=== PATIENT | male | born 1945 | race Caucasian/White ===

== ENCOUNTER 2021-06-25 18:48 | Emergency (ER) | payer MEDICARE, BC ==
[2021-06-25 20:17] LABS: RED BLOOD COUNT 4.88 M/UL (4.20-5.50); WHITE BLOOD COUNT 13.7 K/UL (4.5-11.0)
== END 2021-06-26 00:11 | disposition home or self-care (01) ==
LOC: ER1 18:48
PROVIDERS: Family Medicine
DX: Z00.00 Encounter for general adult medical examination without abnormal findings (principal); N18.9 Chronic kidney disease, unspecified; I12.9 Hypertensive chronic kidney disease with stage 1 through stage 4 chronic kidney disease, or unspecified chronic kidney disease; E78.5 Hyperlipidemia, unspecified
CPT/HCPCS: 80053; 81001; 85025; 87086; 99283

== ENCOUNTER → 2021-08-18 | Outpatient (CLI) | payer MEDICARE, BC | LOC: KOH-I 11:06 | DX: F17.210 Nicotine dependence, cigarettes, uncomplicated (principal) | CPT/HCPCS: 71271 ==

== ENCOUNTER → 2021-09-07 | Outpatient (CLI) | payer MEDICARE, BC | LOC: KOH-I 09:27 | DX: R94.4 Abnormal results of kidney function studies (principal); R39.9 Unspecified symptoms and signs involving the genitourinary system; K80.20 Calculus of gallbladder without cholecystitis without obstruction; I71.4 Abdominal aortic aneurysm, without rupture; N28.1 Cyst of kidney, acquired | CPT/HCPCS: 74176 ==

== ENCOUNTER → 2021-10-02 | Outpatient (CLI) | payer MEDICARE, BC | LOC: KOH-I 13:00 | DX: N18.30 Chronic kidney disease, stage 3 unspecified (principal); N28.1 Cyst of kidney, acquired; K80.20 Calculus of gallbladder without cholecystitis without obstruction | CPT/HCPCS: 76775 ==